=== PATIENT | male | born 1990 | race Caucasian/White ===

== ENCOUNTER 2024-07-02 06:57 | Emergency (ER) | payer MEDICAID ==
[~2024-07-02] VITALS: Ht 165.1 cm; Wt 74.1 kg
[2024-07-02] MEDS ORDERED: thiamine 100mg tablet PO ONE (08:45)
[2024-07-02 10:36] VITALS: BP 141/99; PULSE 101; RESP 16; TEMP 97.9; O2SAT 97
[2024-07-05] MEDS ORDERED: DIPH-735 PO (04:35)
== END 2024-07-02 10:39 | disposition home or self-care (01) ==
LOC: ER 06:57
DX: F10.129 Alcohol abuse with intoxication, unspecified (principal); Y90.9 Presence of alcohol in blood, level not specified
CPT/HCPCS: 99283

== ENCOUNTER 2024-07-09 12:48 | Emergency (ER) | payer MEDICAID ==
[~2024-07-09] VITALS: Ht 170.2 cm; Wt 76.0 kg
[~2024-07-09 12:48] MED LIST: DIPH-735 PO
[2024-07-09 12:54] VITALS: BP 153/86; PULSE 98; RESP 18; O2SAT 94
[2024-07-09] MEDS ORDERED: CHLO25CA10 PO (13:14)
[2024-07-09 13:27] VITALS: TEMP 99.3
== END 2024-07-09 13:29 | disposition home or self-care (01) ==
LOC: ER 12:48
DX: Z00.00 Encounter for general adult medical examination without abnormal findings (principal); F10.239 Alcohol dependence with withdrawal, unspecified; Y90.9 Presence of alcohol in blood, level not specified
CPT/HCPCS: 99283

== ENCOUNTER 2024-07-28 12:29 | Emergency (ER) | payer MEDICAID ==
[~2024-07-28] VITALS: Ht 170.2 cm; Wt 75.9 kg
[~2024-07-28 12:29] MED LIST changes: +CHLO25CA10 PO
[2024-07-28 12:35] VITALS: BP 135/87; PULSE 110; RESP 16; O2SAT 96
[2024-07-28 14:32] VITALS: TEMP 97.2
== END 2024-07-28 14:35 | disposition home or self-care (01) ==
LOC: ER 12:30
DX: F10.129 Alcohol abuse with intoxication, unspecified (principal); Z79.899 Other long term (current) drug therapy
CPT/HCPCS: 99281

== ENCOUNTER 2025-05-17 13:39 | Inpatient (IN) | payer SELFPAY ==
[~2025-05-17] VITALS: Ht 170.2 cm; Wt 89.9 kg
--- NOTE | 2025-05-17 15:08 | Physician Documentation ---
History of Present Illness ~ Chief Complaint: Ingestion Error Stated Complaint: "SEEING THINGS" Time Seen by MD: 14:05 Primary Medical Doctor: None HPI 34-year-old male reports seeing people that may or may not have been there earlier this morning. Denies any psychiatric illnesses does have a history of EtOH abuse. He states that he also took 3-4 ibuprofen and to cups of NyQuil and wants to have his stomach pumped. He adds that he took these medications early this morning.. He denies taking any other medications. Denies any HI or SI or have ever being on been placed on hold. He is hyper fixated on wanting to throw up the medications that he swallowed. Appears paranoid. Day of Ingestion: May 17, 2025 Medication Reconciliation Allergies: Coded Allergies: No Known Allergies (Unverified , 05/17/25) Scheduled Diphenhydramine Hcl (Sleep-Aid), 2 CAP PO HS Thiamine Hcl (Vitamine B-1), 1 TAB PO DAILY, (Reported) Scheduled PRN Chlordiazepoxide Hcl (Librium), 1 CAP PO BID PRN for alcohol w/d symptoms Clonidine HCl (Clonidine HCl), 1 TAB PO TID PRN for anxiety attack, (Reported) Hydroxyzine Hcl* (Atarax*), 1 TAB PO Q6H PRN for anxiety, (Reported) Past Medical History Past Medical History: No Pertinent History Past Surgical History: no surgical history Alcohol Use: None Drug Use: none Review of Systems All Other Systems at this time: Reviewed and Negative ROS As stated above in the HPI, otherwise all systems are reviewed and negative. Constitutional: Reports: no symptoms reported Physical Exam Vital Signs: Temperature: 97.6, Source: Temporal, Heart Rate: 98, Respiratory Rate: 16, BP: 171/80, Pulse Oximetry: 91, Weight: 89.900 Oxygen Flow Rate: 0 Physical Exam General: Alert, no apparent distress. HEENT: PERRL, EOMI, no injection, moist mucous membranes. Neck: Full range of motion. Respiratory: Lungs clear, no respiratory distress. Chest: No accessory muscle use. Cardiovascular: Regular rate and rhythm, no murmurs. Gastrointestinal: Soft, nontender, nondistended. Bowels sounds present. Extremities: Normal range of motion, no deformity. Neurologic: Oriented x4. Anxious appearing Psychiatric: Normal mood and affect. Skin: Normal color, warm and dry. No edema, no ecchymosis. Progress Progress Note Received critical results on patient's chemistry panel, starting for hyponatremia hypokalemia and likely hypomagnesemia Patient staff advised me that the patient likely has eloped from his room they are evaluating via security to obtain a location of the patient Consulted with [facility] and they do not have this patient in their roster her from previous interactions or Cases Patient's father brought the patient back to the ED for evaluation. We are starting resuscitation efforts at this time. Patient's current status does not differentiate from when he departed from the ED Results/Orders Results/Orders Orders - MANDA BALLESTEROS HOTEL OFFICE MANAGER K (05/18/25 03:00) K (05/19/25 03:00) K (05/20/25 03:00) K (05/21/25 03:00) K (05/22/25 03:00) K (05/23/25 03:00) K (05/24/25 03:00) Potassium Cl Sr Tablet (K-Dur Tablet) (05/17/25 17:10) Potassium Cl Sr Tablet (K-Dur Tablet) (05/17/25 17:10) MG (05/18/25 03:00) MG (05/19/25 03:00) MG (05/20/25 03:00) MG (05/21/25 03:00) MG (05/22/25 03:00) Potassium Cl 40meq/1/2ns 520ml ([place] (05/17/25 17:10) Creatinine Clearance, Urine (05/17/25 17:10) * Straight Cath* (05/17/25 17:27) Page Hospitalist (05/17/25 19:01) Fill Out Med Reconciliation (05/17/25 19:01) Completed Orders - MANDA BALLESTEROS HOTEL OFFICE MANAGER Cbc/Diff (05/17/25 15:05) BMP (05/17/25 15:05) Lipase (05/17/25 15:05) CMP (05/17/25 15:05) Normal Saline 1000ml (0.9% Sodium Chlori (05/17/25 15:05) Diazepam Inj (Valium Inj) (05/17/25 15:05) Drug Screen, Urine (05/17/25 15:48) Acetaminophen (05/17/25 15:12) Ethanol (05/17/25 15:12) Salicylate (05/17/25 15:12) Electrocardiogram (05/17/25 ) MG (05/17/25 15:12) Magnesium Sulf-Water 2g/50ml (Magnesium (05/17/25 17:05) Normal Saline 1000ml (0.9% Sodium Chlori (05/17/25 17:25) Ua Sodium Random (05/17/25 17:24) Osmoality Ua (05/17/25 17:24) Osmolality (05/17/25 17:24) Ua Urea Random (05/17/25 17:24) Ua Creatinine Random (05/17/25:) Ua W/Microscopic, Cult If Ind (05/17/25 17:45) Medications Received in ER Medications (Trade) Dose Ordered Sig/Cayla Route PRN Reason Start Time Stop Time Status Last Admin Dose Admin (0.9% sodium chloride (NS) 1000ml IV soln) 1,000 ml ONCE ONCE IVB 05/17/25 15:05 05/17/25 15:06 DC 05/17/25 18:22 1,000 ML (Valium inj) 10 mg ONCE ONCE IV 05/17/25 15:05 05/17/25 15:06 DC 05/17/25 18:35 10 MG Magnesium Sulfate 50 ml @ 25 mls/hr ONCE ONCE IV 05/17/25 17:05 05/17/25 19:04 DC 05/17/25 18:19 25 MLS/HR (K-DUR tablet) 40 meq Q4H PRN PO Potassium 3.0 or less 05/17/25 17:10 05/17/25 18:36 40 MEQ Potassium Chloride 520 ml @ 130 mls/hr PRN PRN IV Potassium 3.1-3.4 05/17/25 17:10 05/17/25 18:25 130 MLS/HR (0.9% sodium chloride (NS) 1000ml IV soln) 1,000 ml ONCE ONCE IVB 05/17/25 17:25 05/17/25 17:26 DC 05/17/25 19:09 1,000 ML Vital Signs 05/17/25 05/17/25 05/17/25 05/17/25 14:07 15:06 17:55 17:56 Temp 97.6 Pulse 98 101 88 Resp 16 24 18 18 B/P (MAP) 171/80 156/92 (113) 150/86 (107) Pulse Ox 91 93 92 O2 Flow Rate 0 0 05/17/25 05/17/25 18:35 19:04 Pulse 84 Resp 18 18 B/P (MAP) 136/80 (98) Pulse Ox 99 O2 Flow Rate 0 Laboratory Tests Test 05/17/25 15:12 05/17/25 17:45 White Blood Count 12.9 H Red Blood Count 5.47 Hemoglobin 16.1 Hematocrit 45.4 Mean Corpuscular Volume 83.1 Mean Corpuscular Hemoglobin 29.5 Mean Corpuscular Hemoglobin Concent 35.5 Red Cell Distribution Width 13.4 Platelet Count 285 Mean Platelet Volume 7.8 Neutrophils (%) (Auto) 75.1 H Lymphocytes (%) (Auto) 13.4 L Monocytes (%) (Auto) 11.0 Eosinophils (%) (Auto) 0.2 Basophils (%) (Auto) 0.3 Neutrophils # (Auto) 9.7 H Lymphocytes # (Auto) 1.7 Monocytes # (Auto) 1.4 H Eosinophils # (Auto) 0.0 Basophils # (Auto) 0.0 CBC Comment Sodium Level 121 L Potassium Level 2.1 *L Chloride Level 68 L Carbon Dioxide Level 38.2 H Anion Gap 15 Blood Urea Nitrogen 43 H Creatinine 1.92 H Estimated GFR/1.73 m2 40 BUN/Creatinine Ratio 22.4 H Glucose Level 136 H Osmolality 266 L Calcium Level 7.8 L Magnesium Level 1.9 Total Bilirubin 1.5 H Aspartate Amino Transf (AST/SGOT) 86 H Alanine Aminotransferase (ALT/SGPT) 79 H Alkaline Phosphatase 83 Total Protein 8.2 Albumin 4.3 Globulin 3.9 Albumin/Globulin Ratio 1.1 Lipase 29 Chemistry Comments Salicylates Level 0.3 L Acetaminophen Level < 2.0 L Ethyl Alcohol Level < 10 Urine Specimen Description Urinal Urine Color Yellow Urine Clarity Clear Urine pH 6.5 Urine Specific [place] 1.015 Urine Protein Trace Urine Glucose (UA) Negative Urine Ketones Trace H Urine Occult Blood Small Urine Nitrite Negative Urine Bilirubin Negative Urine Urobilinogen 0.2 Urine Leukocyte Esterase Negative Urine RBC 3-10 Urine WBC 0-4 Urine Squamous Epithelial Cells Few Urine Transitional Epithelial Cells Few Urine Uric Acid Crystals Few Urine Bacteria None seen Urine Hyaline Casts 0-3 Urine Culture Indicated Not ind Volume Urine Centrifuged 10 ml Urine Osmolality 399 Urine Random Creatinine 106.0 Urine Random Sodium 22 Urine Random Urea 699.0 Urine Comment Urine Opiates Screen Negative Urine Methadone Screen Negative Urine Fentanyl Screen Negative Urine Barbiturates Screen Negative Urine Phencyclidine Screen Negative Urine Amphetamines Screen Negative Urine Benzodiazepines Screen Negative Urine Cocaine Screen Negative Urine Cannabinoids Screen Negative Drug Screen Comment EKG/XRAY/CT/US/VASC/MRI EKG : Additional Comment Date: May 17, 2025 Time: 17:07 EKG was obtained by the [facility] record and interpreted by myself Jaun Sarmiento DO, showing sinus rhythm of 97, normal [place] interval, borderline QRS of 118, prolonged QT of 554, normal axis, no STEMI, fairly high T-waves concerning for atrial enlargement. No STEMI. Medical Decision Making Additional information obtaine: old records Findings Patient is grossly abnormal lab values including hypokalemia hyponatremia and elevated creatinine with decreased kidney function. He appears as though he is esentially diluted himself based on his lab values. This time we will going to started resuscitating him and his electrolytes along with the admitting for further evaluation by the hospitalist Differential Dx:Considerations: Include: Alcohol abuse, Anxiety, Bipolar disorder, Conversion disorder, Delirium, Depression, Drug Overdose-Accidental, Drug Overdose-Intentional, Encephalopathy, Hallucinations, Homicidal, Liver failure, Panic disorder, Personality disorder, Renal failure, Respiratory failure, Schizophrenia, Substance abuse, Suicidal attempt, Suidical gesture, Other Departure Disposition: ADMITTED INPATIENT Impression: Primary Impression: Alcoholic intoxication Additional Impressions: Hyponatremia Hypokalemia Referrals: NO PRIMARY CARE PROVIDER (PCP) Critical Care Note Total Time (mins): 30 Critical Care Note The very real possibility of a deterioration of this patient's condition required the highest level of my preparedness for sudden, emergent intervention. I provided critical care services, which included medication orders, frequent reevaluations of the patient's condition and response to treatment, ordering and reviewing test results, and discussing the case with various consultants. Excludes time spent performing separately billable procedures. The critical care time associated with the care of the patient was. Signature Scribe Signature: g Attestation: Scribed for Manda Ballesteros Technology Strategist by Manda Ferro NP . 05/17/25 22:45 MANDA BALLESTEROS NP May 17, 2025 15:08 JUAN SARMIENTO DO May 17, 2025 17:09
[2025-05-17 15:27] LABS: MEAN PLATELET VOLUME 7.8 FL (7.4-10.4); RED CELL DISTRIBUTION WIDTH 13.4 % (11.5-14.5)
[2025-05-17 15:42] LABS: CREATININE 1.92 MG/DL (0.60-1.10); TOTAL CARBON DIOXIDE 38.2 MMOL/L (24-32); eCRCL 51 ML/MIN; eGFR 40 ML/MIN
[2025-05-17 16:09] LABS: ETHANOL < 10 MG/DL (<10)
--- NOTE | 2025-05-17 17:05 | ELECTROCARDIOGRAPH REPORT ---
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 TAMMY Corral Measurements Intervals [place] Rate: 97 P: 79 HI: 126 QRS: 80 QRSD: 118 T: 50 QT: 436 QTc: 554 Interpretive Statements Sinus rhythm Right atrial enlargement Nonspecific intraventricular conduction delay Probable inferior infarct, old Borderline ST elevation, anterior leads Baseline wander in lead(s) V1 Electronically Signed On 05-18-2025 12:59:[address] TAMMY Corral Please click the below link to view image of tracing.
[2025-05-17] MEDS ORDERED: potassium Cl 20 mEq SR tablet PO PRN ×3 (17:10→20:50)
[2025-05-17 18:05] LABS: LEUKOCYTE ESTERASE ,URINE NEGATIVE (Neg); NITRITES, URINE NEGATIVE (Neg); OCCULT BLOOD,URINE SMALL (Neg)
[2025-05-17 18:11] LABS: UA COLLECTION TYPE URINAL
[2025-05-17 18:12] LABS: SQUAMOUS EPITHELIAL CELL,UR FEW /LPF (FEW); URIC ACID CRYSTALS FEW /HPF (NEGATIVE)
[2025-05-17 18:13] LABS: HYALINE CASTS 0-3 /LPF (NEGATIVE)
[2025-05-17 18:18] LABS: CREATININE,URINE RANDOM 106.0 MG/DL; UA UREA RANDOM 699.0 MG/DL
[2025-05-17] MEDS: magnesium sulf-water 2g/50mL 50 ML IV ONE (18:19)
[2025-05-17] MEDS: normal saline 1000ML IV soln IVB ONE ×2 (18:22→19:09)
[2025-05-17] MEDS: potassium Cl 40MEQ/1/2NS 520ml 520 ML IV PRN (18:25)
[2025-05-17 18:26] LABS: URINE AMPHETAMINE SCREEN NEGATIVE (Neg); URINE BARBITUATE SCREEN NEGATIVE (Neg); URINE BENZODIAZEPINES SCREEN NEGATIVE (Neg); URINE CANNABINOID SCREEN NEGATIVE (Neg); URINE COCAINE SCREEN NEGATIVE (Neg); URINE METHADONE SCREEN NEGATIVE (Neg); URINE OPIATE SCREEN NEGATIVE (Neg); URINE PHENCYCLIDINE SCREEN NEGATIVE (Neg)
[2025-05-17] MEDS: diazepam inj 5 MG/ML inj. IV ONE (18:35)
[2025-05-17] MEDS: potassium Cl 20 mEq SR tablet PO PRN (18:36)
[2025-05-17 18:47] LABS: OSMOLALITY UA 399.0 MOSM/K (50-1400)
[2025-05-17] MEDS ORDERED: potassium Cl 40MEQ/1/2NS 520ml 520 ML IV PRN (20:50)
[2025-05-17] MEDS ORDERED: ondansetron/PF 4mg/2ml inj IV PRN (20:50)
[2025-05-17] MEDS ORDERED: magnesium sulf-water 2g/50mL 50 ML IV PRN (20:50)
[2025-05-17] MEDS ORDERED: magnesium sulf-water 4G/100mL 100 ML IV PRN (20:50)
[2025-05-17] MEDS ORDERED: mag hydrox/Alum hydrox/simeth 30ml oral suspension PO PRN (20:50)
[2025-05-17] MEDS ORDERED: magnesium Cl slow-release 64mg tablet PO PRN (20:50)
[2025-05-17] MEDS ORDERED: albuterol 2.5 MG/3 ML nebule NEB PRN (21:00)
[2025-05-17] MEDS: ipratropium/albuterol 3ml nebule NEB SCH (22:00)
[2025-05-17] MEDS ORDERED: CLON0.1T2 PO (22:07)
[2025-05-17] MEDS ORDERED: THIA100T66 PO (22:07)
[2025-05-17] MEDS ORDERED: HYDR-3686 PO (22:07)
[2025-05-17] MEDS: normal saline 1000ml 1,000 ML IV SCH (22:08)
[2025-05-17] MEDS: guaiFENesin ER 600mg tablet PO SCH (22:08)
[2025-05-17] MEDS: nicotine 14mg patch - 24hr TD SCH (22:08)
[2025-05-17] MEDS: CefTRIAXone/D5W-Rocephin 1gm 50 ML IV SCH (22:09)
[2025-05-17 22:11] LABS: CREATININE 1.77 MG/DL (0.60-1.10); eCRCL 55 ML/MIN; eGFR 44 ML/MIN
--- NOTE | 2025-05-17 22:12 | RADIOLOGY REPORT ---
EXAM: CT CT HEAD INDICATION: aloc TECHNIQUE: CT of the head without intravenous contrast. Radiation Dose : 1. Head: CT Dose: CTDI volume is 58.45 mGy. Dose-length product is 1044.30 mGy*cm The dose indicators for CT are the volume Computed Tomography (CT) Dose Index (CTDIvol) and the Dose Length Product (DLP), and are measured in units of mGy and mGy-cm, respectively. These indicators are not patient dose, but values generated from the CT scanner acquisition factors. The report includes radiation exposure data for exposures received during this examination. COMPARISON: None FINDINGS: There is no evidence of acute intracranial hemorrhage, extra-axial collection, mass effect, midline shift, herniation or hydrocephalus. The ventricles, sulci and cisterns are age appropriate. The villegas-white differentiation is intact. The visualized paranasal sinuses and mastoid air cells are clear. The surrounding soft tissues and osseous structures are unremarkable. IMPRESSION: 1. No evidence of acute intracranial hemorrhage, mass effect or hydrocephalus. Radiation optimization: All CT scans at this facility use at least one of these dose optimization techniques: automated exposure control mA and/or kV adjustment per patient size (includes targeted exams where dose is matched to clinical indication) or iterative reconstruction.
[2025-05-17 22:14] LABS: TOTAL CARBON DIOXIDE 41.4 MMOL/L (24-32)
[2025-05-17 22:45] LABS: PHOSPHORUS 3.0 MG/DL (2.3-4.5)
--- NOTE | 2025-05-17 22:51 | RADIOLOGY REPORT ---
CHEST RADIOGRAPH Indication: CONGESTION Technique: Single frontal view of the chest was obtained. Comparison: None Findings: Mild pulmonary vascular congestion. No significant pleural effusion. No pneumothorax. Nonenlarged cardiomediastinal silhouette. IMPRESSION: Mild pulmonary vascular congestion.
[2025-05-17 23:02] VITALS: BP 162/77; PULSE 98; RESP 18; TEMP 98.1; O2SAT 91
--- NOTE | 2025-05-17 23:03 | HISTORY AND PHYSICAL-Residence ---
History & Physical Providers to CC Resident Creating Document: ROSENDA BOLANOS RES ~ History of Present Illness Primary Medical Doctor: None Reason for Admit\\Complaint: ELECTROLYTE ABNORMALITIES,HALLUCINATIONS, AMARILIS History of Present Illness 34-year-old male who is not a very good historian presented to the ED for chief complaints of hallucinations, both auditory and visual. He states that these hallucinations has been going on for a week. He was using melatonin in the past to help him sleep, but started using Advil PM HS and NyQuil HS since the last one week. He is only able to sleep for 4 hours. He says that he was also using "hydroxamine and ketadine" for insomnia. Denies aggravating or relieving factors, or associated symptoms like significant chest pains, diaphoresis, fevers/chills, nasal congestion, expectoration, palpitations, or weight loss/weight gain. Denies symptoms of UTI like urgency, frequency, lower belly pain or burning micturition. Does not have any issues with bowel or bladder. States that he quit drinking alcohol 11 months ago, used to drink a bottle of vodka every day. Smokes around 10 cigarettes a day. Denies recreational drug use. Does not have any suicidal ideations or thoughts of harming others. [facility]. Not sure if he has a psychiatrist or if it was a regular PCP. Does not take any home medications other than the ones mentioned above. No known drug allergies. Allergies: Coded Allergies: No Known Allergies (Unverified , 05/17/25) Home Medications Home Medications Active Librium (Chlordiazepoxide Hcl) 25 Mg Capsule 1 Cap PO BID PRN 3 Days Sleep-Aid (Diphenhydramine Hcl) 25 Mg Capsule 2 Cap PO HS Reported Vitamine B-1 (Thiamine Hcl) 100 Mg Tablet 1 Tab PO DAILY Atarax* (Hydroxyzine HCl) 25 Mg Tablet 1 Tab PO Q6H PRN Clonidine HCl 0.1 Mg Tablet 1 Tab PO TID PRN Past Medical History Past Medical History None Past Surgical History Surgical History Comment Hernia surgery Past Social History Smoking: Cigarettes Alcohol Use: None Drug Use: None ROS All Other Systems: Reviewed and Negative ROS Reviewed in full. All negative except for pertinent positive HPI. Constitutional: Reports: no symptoms reported Exam Vitals: Vital Signs Date Time Temp Pulse Resp B/P (MAP) Pulse Ox O2 Delivery O2 Flow Rate FiO2 05/17/25 22:21 98.1 88 18 144/75 (98) 97 0 General: General: Awake and Alert, no acute distress. HEENT: Conjunctiva pink, Sclera clear, Mucus Membranes moist. Neck: Supple without masses and tenderness. Resp: Unlabored. Bilateral wheeze. Heart: Regular rhythm, normal S1 and S2, no rub, murmur or gallop. Abdomen: Soft and non tender no organomegaly. Normal bowel sounds x4 quadrant normoactive. No guarding or rigidity. Extremities: Normal ROM, no swelling, nontender. No cyanosis,clubbing or edema. 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 Skin: Warm and Dry. Psychiatry: Visual and auditory hallucinations Diagnostic Data Last Recorded Lab Results: 05/17/25 1512 05/17/252136 Advance Care Planning Advanced Care plannin - 30 Minutes (I spent total of 15-30 minutes reviewing various resuscitative measures with the patient. Patient decided to be full code.) Additional Plan 34-year-old male who is not a very good historian presented to the ED for chief complaints of hallucinations, both auditory and visual. He states that these hallucinations has been going on for a week. Severe electrolyte abnormalities, under evaluation Hyponatremia, hypokalemia, hypocalcemia Possible drug-induced SIADH (secondary to NSAIDs, NyQuil) vs adrenal insufficiency Prolonged QTC, Visual and auditory hallucinations EKG: Normal sinus rhythm heart rate 97. QTC 554. Electrolyte replacement and continuous telemetry monitoring Continue NS at 100 mL/hour Repeat BMP, sodium up to 125, potassium 2.6 Unsure if he had consumed NSAIDs Advil and NyQuil along with some other drugs, he does deny street drug use. Also ordered urine MDMA and LSD as they could be causing the above symptoms, follow up with results Thyroid profile is normal, There was a possibility of underlying adrenal insufficiency, follow up with a.m. cortisol, and ACTH Avoid NSAIDs and all QT prolongation medications Metabolic alkalosis I was told that he was trying to induce vomiting, he has not had any episodes of emesis while in the ED Carbon dioxide is 41 Metabolic alkalosis could be secondary to contraction alkalosis from the above Follow up with ABG AMARILIS likely secondary to renal tubular stasis BUN 43, creatinine 1.92 Acute kidney injury could be from prerenal AMARILIS Continue IV fluid resuscitation Urine spot studies consistent with prerenal AMARILIS Follow up with renal ultrasound COPD, not in exacerbation Active smoker Bilateral wheeze present, he is also complaining of greenish sputum Does have mild elevation in WBCs Follow up with sputum cultures and blood cultures Continue IV ceftriaxone 1 g daily Breathing treatments p.r.n. Alcohol use disorder Hepatic dysfunction - Elevated LFTs Elevated bilirubin 1.5, AST ALT 86, 79 States he quit drinking 11 months ago, U tox ethyl alcohol less than 10 Mild withdrawal protocol on board, Follow up with ultrasound abdomen Substance use and nursing home social worker consulted. On 1798, we will need to be evaluated by mental health once medically cleared. Awaiting med rec Code Status: Full code DVT prophylaxis: Heparin Analgesia/sedation: None Line/tube: PIV GI prophylaxis: None Nutrition: Regular diet Prognosis: Guarded Disposition: Continue medical management. Rosenda Bolanos MD. IM Resident PGY-3 I saw and discussed the patient with the resident team agree with assessment and plan we will follow I asked to call Nephrology on the case Date of Service: May 17, 2025 Billing Provider: KOLTON HARPER MD, ELIZABETH, RES May 17, 2025 23:03 KOLTON HARPER MD May 18, 2025 06:31
[2025-05-17 23:30] VITALS: RESP 18; O2SAT 91
[2025-05-18] VITALS (13 sets, daily range): BP systolic 115–155; BP diastolic 70–91; PULSE 85–105; RESP 16–22; TEMP 98.1–99; O2SAT 91–96
[2025-05-18 01:50] LABS: LEUKOCYTE ESTERASE ,URINE NEGATIVE (Neg); NITRITES, URINE NEGATIVE (Neg); OCCULT BLOOD,URINE TRACE-INTACT (Neg); UA COLLECTION TYPE NON-SPECIFIED
[2025-05-18 01:58] LABS: SQUAMOUS EPITHELIAL CELL,UR FEW /LPF (FEW)
[2025-05-18] MEDS ORDERED: calcium gluconate inj. 2 GM in normal saline 100ml IV soln 100 ML IV ONE (04:30)
[2025-05-18] MEDS ORDERED: PERFLUTREN PROTEIN-A MICROSPHR (Optison) 0.22 MG/ML 3ML VIAL IV ONE (04:30)
[2025-05-18] MEDS: CALCIUM GLUC 1gm/50ml NACL,iso 100 ML IV ONE (05:16)
[2025-05-18] MEDS: K and/or MAG REPLACEMENT MC SCH (08:00)
[2025-05-18] MEDS: nicotine 14mg patch - 24hr TD SCH (08:00)
[2025-05-18 08:10] LABS: MEAN PLATELET VOLUME 8.0 FL (7.4-10.4); RED CELL DISTRIBUTION WIDTH 13.3 % (11.5-14.5)
[2025-05-18 08:11] LABS: INR 1.0 INR
[2025-05-18 08:42] LABS: CHOL/HDL RATIO 3.4 (0.00-4.99); CREATININE 1.34 MG/DL (0.60-1.10); LDL CHOLESTEROL 78 MG/DL (50-100); PHOSPHORUS 1.9 MG/DL (2.3-4.5); TOTAL CARBON DIOXIDE 37.8 MMOL/L (24-32); eCRCL 73 ML/MIN; eGFR 61 ML/MIN
[2025-05-18] MEDS: multivitamins, therapeutics tablet PO SCH (08:52)
[2025-05-18] MEDS: heparin, porcine 5000 units/ml vial SQ SCH (08:53)
--- NOTE | 2025-05-18 09:25 | RADIOLOGY REPORT ---
INDICATION: elevated lfts TECHNIQUE: Multiple real-time sonographic images of the abdomen were obtained. COMPARISON: None FINDINGS: The liver is homogenous in echogenicity. The liver measures 18cm. No intrahepatic biliary ductal dilatation is noted. The gallbladder wall measures 0.3 cm and is unremarkable. No gallstones or sludge is seen. The common duct measures 0.3 cm and is unremarkable. No pericholecystic fluid is noted. The right kidney measures 11cm. No hydronephrosis. The left kidney measures 12cm. No hydronephrosis. The spleen measures 9cm, within normal limits. The echogenicity is within normal limits. The pancreas is not well visualized due to obscuration from bowel gas. The visualized portions of the IVC and aorta are grossly unremarkable. IMPRESSION: Normal exam of the abdomen.
--- NOTE | 2025-05-18 18:00 | CARDIOLOGY REPORT ---
APPROVED REPORT EXAM: Comprehensive 2D, Doppler, and color-flow Echocardiogram. Patient Location: [facility] Blood Pressure: 139/70 mmHg Heart Rate: 100 bpm Indications Shortness of Breath NO FRAMING MECHANIC NO Previous ECHO 2D Dimensions LA Diam 2.6 cm IVSd 0.8 (0.7-1.1cm) LVDd 5.6 cm PWd 0.9 (0.7-1.1cm) IVSs 1.5 (0.8-1.2cm) LVDs 3.7 (2.5-4.0cm) PWs 1.3 (0.8-1.2cm) LVOT Diameter 2.22 (1.8-2.4cm) LVEF(%) 61.3 (>50%) Ao Asc Diam. 3.44 cm IVC 13.09 mm FS (%) 33.3 % SV 93.9 ml CO 9.3 L/min M-Mode Dimensions Left Atrium(MM) 3.10 (2.5-4.0cm) Aortic Root 2.41 (2.2-3.7cm) Aortic Cusp Exc 1.89 (1.5-2.0cm) MV EPSS 0.5 (<0.5cm) Aortic Valve AoV Peak Natanael. 207.0 cm/s AoV VTI 31.8 cm AO Peak GR. 17.1 mmHg AO Mean GR. 9 mmHg LVOT VTI 21.71 cm LVOT Peak Natanael. 125.2 cm/s LAINA(VTI)/BSA 2.64 cm2/m2 LAINA (VTI) 2.64 cm2 AI P 1/2 Time 496 ms AV DI 0.68 % Mitral Valve MV E Velocity 82.8 cm/s MV Peak Gr. 3 mmHg MV DECEL TIME 208 ms MV A Velocity 72.7 cm/s MV PHT 64 ms E/A Ratio 1.1 MVA (PHT) 3.44 cm2 MV VMax 81.1 cm/s TDI Lateral E' P. V 18.46 cm/s E/Lateral E' 4.5 Tricuspid Valve TR P. Velocity 168 cm/s RAP ESTIMATE 10 mmHg TR Peak Gr. 11 mmHg RVSP 21 mmHg LEFT VENTRICLE Normal LV size and wall thickness. Overall systolic function is normal. LVEF is 60-65%. RIGHT VENTRICLE RV is normal size and function. ATRIA The left atrium size is normal. AORTIC VALVE Trileaflet AV with moderate calcification on the right and left commissure Trace insufficiency. MITRAL VALVE Mitral valve leaflets are mildly thickened with mild annular calcification. Trace regurgitation. TRICUSPID VALVE The tricuspid valve is normal in structure with trace regurgitation. PULMONIC VALVE The pulmonary valve is normal in structure with physiologic insufficiency. GREAT VESSELS The aortic root is normal in size. The ascending aorta is normal in size. The IVC is normal in size and collapses >50% with inspiration. PERICARDIUM Normal pericardium. No effusion. Other Information Study Quality: Adequate Conclusion Normal LV size and wall thickness. Overall systolic function is normal. LVEF is 60-65%. RV is normal size and function. The left atrium size is normal. Trileaflet AV with moderate calcification on the right and left commissure Trace insufficiency. Mitral valve leaflets are mildly thickened with mild annular calcification. Trace regurgitation. The tricuspid valve is normal in structure with trace regurgitation. The pulmonary valve is normal in structure with physiologic insufficiency. Normal pericardium. No effusion.
--- NOTE | 2025-05-18 19:19 | PROGRESS NOTE ---
Daily Progress Note Providers to CC ~ Antibiotic Timeout Antibiotic Ordered?: Yes Subjective Patient was seen in presence of sitter he was sitting on the chair walking around. Not very good historian but cooperated well during physical exam Objective Vital Signs Date Time Temp Pulse Resp B/P (MAP) Pulse Ox O2 Delivery O2 Flow Rate FiO2 05/18/25 18:30 101 05/18/25 18:28 98.1 16 144/87 (106) 93 Room Air 05/18/25 16:04 0.0 05/18/25 15:59 21 Result Diagram: 05/18/25 0717 05/18/25 0717 General-patient not in any acute distress, alert awake , age-appropriate, looks comfortable HEENT-atraumatic normocephalic, neck supple without elevated JVD, No lymphadenopathy bilaterally. Eyes-no icterus or pallor seen in eyes Chest-clear to auscultation bilaterally, breathing nonlabored no tachypnea, no wheezing, no crepitation, no crackles. Heart-S1-S2 normal, regular heart rate no murmur Abdomen bowel sounds positive on auscultation, soft nondistended nontender no guarding, no rigidity Skin no active skin rash Neurology-grossly intact, nonfocal alert awake cooperated during physical examination Extremity- no pedal edema able to move all 4 extremities Coagulation Studies Laboratory Tests Test 05/18/25 07:17 Prothrombin Time 10.3 SECONDS (9.0-12.0) INR International Normalized Ratio 1.0 INR Coagulation Comments Problem\Assessment\Plan 34-year-old male who is not a very good historian presented to the ED for chief complaints of hallucinations, both auditory and visual. He states that these hallucinations has been going on for a week. Severe electrolyte abnormalities, under evaluation Hyponatremia, hypokalemia, hypocalcemia Possible drug-induced SIADH (secondary to NSAIDs, NyQuil) vs adrenal insufficiency Prolonged QTC, Visual and auditory hallucinations EKG: Normal sinus rhythm heart rate 97. QTC 554. Electrolyte replacement and continuous telemetry monitoring Continue with NS at 100 mL/hour will follow BMP, sodium up to 125, potassium 2.6. Urine drug screen negative Metabolic alkalosis Metabolic alkalosis could be secondary to contraction alkalosis from the above will Follow up with ABG AMARILIS likely secondary to renal tubular stasis BUN 43, creatinine 1.92 Acute kidney injury could be from prerenal AMARILIS Continue IV fluid resuscitation Urine spot studies consistent with prerenal AMARILIS Abdominal ultrasound unremarkable COPD, not in exacerbation Active smoker WBC back to normal will Follow up with sputum cultures and blood cultures Continue IV ceftriaxone 1 g daily Breathing treatments p.r.n. Alcohol use disorder Hepatic dysfunction - Elevated LFTs Elevated bilirubin 1.5, AST ALT 86, 79 States he quit drinking 11 months ago, U tox ethyl alcohol less than 10 Substance use and social media marketing analyst consulted. On 1798, we will need to be evaluated by mental health once medically cleared. We will get psychiatry evaluation for patient Date of Service: May 18, 2025 Billing Provider: SERGIO QUINTERO MD Common Visit Codes: [id number] INP/OBS CARE(HIGH) SERGIO QUINTERO MD May 18, 2025 19:19
[2025-05-18] MEDS ORDERED: ipratropium/albuterol 3ml nebule NEB PRN (20:00)
[2025-05-19] VITALS (8 sets, daily range): BP systolic 146–148; BP diastolic 79–89; PULSE 78–100; RESP 16–19; TEMP 97.7–98.8; O2SAT 94–99
[2025-05-19] MEDS: haloperidol lactate 5mg/ml inj IM ONE (00:16)
[2025-05-19 07:31] LABS: MEAN PLATELET VOLUME 8.1 FL (7.4-10.4); RED CELL DISTRIBUTION WIDTH 14.0 % (11.5-14.5)
[2025-05-19 08:00] LABS: CREATININE 1.09 MG/DL (0.60-1.10); PHOSPHORUS 2.4 MG/DL (2.3-4.5); TOTAL CARBON DIOXIDE 31.6 MMOL/L (24-32); eCRCL 89 ML/MIN; eGFR 77 ML/MIN
[2025-05-19] MEDS: nicotine 14mg patch - 24hr TD SCH (08:12)
[2025-05-19] MEDS ORDERED: loperamide 2mg capsule PO PRN (10:10)
--- NOTE | 2025-05-19 12:33 | PROGRESS NOTE ---
Progress Note Dictate Providers to CC ~ Progress Note: HPI: Admitted for electrolyte imbalance, overdosed on NyQuil and ibuprofen- presented to the ED requesting his stomach be pumped. [facility] endorsed on admission to ED- states they had been present for one week. Utox negative. Denied ilicit drug use. Attempted to elope from the emergency department. On a sitter due to elopement risk and danger to self. Consulted to r/o underlying agitation, has pulled out his IV twice, ativan has worsened hallucinations, haloperidol was more effective for agitation and sleep, Hallucinations intermittent- there will be times when he starts talking to staff and he shared that he thought he was in the middle of the street, was actilvity observing unseen things out of the window, then there will be other tiems where he appears to be a "normal xiomy" significant agitation HS 05/18- was administered haloperidol, has been more cooperative today. Security was called twice on 05/18 due to agitation. Concern that agitation has been escalating at night. Per father it was started by getting strep throat, poor fluid intake, emesis, then Nyquil PM. Reports he was hallucinating for one day and he knew something was wrong and so they went to the ED. States he was having trouble sleeping so he took a high dose of sleeping medication, denies it was an intentional overdose. States a similar incident happened 9-10 months ago in the context of abusing alcohol he developed hallucinations, was in the process of withdrawing. Previously admitted to [facility] ED on 07/05/24 for insomnia- in the context of alcohol withdrawal. Psychiatric History: Outpatient: Psychiatrist at [facility] Inpatient: denies Historical Diagnoses (w/year): Access to firearms: Hx of suicide attempts: denies Hx of self-harm: denies Hx of violence: denies Legal hx: denies Historical Psych Medications Substances use history: cigarettes- is being provided nicotine patches. Quit ETOH 11 months ago, hx of bottle of vodka QD. Social history: Born and raised in [place], supportive family and friends, single, graduated high school. Today on Assessment: Calm, alert, oriented, socializing with family Psychiatric Medications: None Review of Psychiatric Symptoms: Mood: "good" "better" denies depression Suicide/self-harm: denies Sleep: patient estimates 6+ hours last night Appetite: fair Energy: tired Anxiety: denies Irritability: denies Homicidal/Anger: denies Hallucinations/Paranoia: denies, none noted by nursing staff today Trauma symptoms: denies Symptoms related to substance withdrawal: denies Mental Status Evaluation General Appearance: Casually dressed, Sitting up on the edge of the bed Eye contact: consistent with social norms Demeanor: cooperative Orientation: to person, place, time, situation Speech: Appropriate rate/rhythm/volume Psychomotor Activity: within normal range Abnormal Body Movements: none observed Mood: euthymic Affect: Full range Suicidality: denies suicidal ideation Homicidally: denies Thought content: consistent with social norms Thought process: logical, linear Thought perceptions: no perceptual disorder noted Memory: appears intact Attention: appear attentive Insight: fair Judgment: good Current Medical Problems: AMARILIS Metabolic Alkalosis Severe electrolyte abnormalities- hyponatremia, hypokalemia, hypocalcemia (EKG wnl) COPD Alcohol use disorder- hepatic dysfunction (elevated LFTs) Medical History TBI Hx: denies Seizure Hx: denies RANDI Hx: denies Diagnoses Acute anticholinergic toxicity Delirium secondary to anticholinergic toxicity (NyQuil, hydroxyzine, benadryl) Alcohol use disorder-- chronic hepatic dysfunction - Assessment Based on initial evaluation, including interview and history obtained today, patient appears to meet criteria for Acute anticholinergic toxicity, Delirium secondary to anticholinergic toxicity, alcohol use disorder. He reports sobriety from alcohol for the past 11 months and reports he is consistently attending appointments at [facility] for follow up treatment to sustain remission from alcohol. Per ED records he has had episodes of alcohol intoxication and acute withdrawal symptoms in June 2024. He denies that he was experiencing alcohol withdrawal in the week prior to hospitalization. Father affirms that he provided the patient Nyquil and other flu medication because the patient was ill (poor po intake, emesis, trouble with sleep) and that over use of these over the counter medications led to a physiologic state and change in mental status including hallucinations and changes in attention. Both the patient and family deny he has been experiencing additional psychiatric symptoms, deny psychiatric history. Both patient and family deny history of suicidality, report the overuse of medication as accentual. Reported history and psychiatric presentation throughout his current hospital course is consistent with a delirium due to acute anticholinergic toxicity. He responded poorly to lorazepam which would be congruent with delirium and response positively to haloperidol. No indication he is experiencing alcohol withdrawal. He reports insomnia since sobering from alcohol, he is not interested in psychiatric medication to address today. Provided education about the risks associated with the use of Nyquil and over the counter sleep medication. Encouraged him to follow up with his provider at [facility] to further address his insomnia with medication that have a lower anticholinergic burden as well as for treatment of alcohol use disorder. - Safety risk: low risk of imminent self-harm, low risk of externalized violent behaviors Recommendation: Start haloperidol 5 mg po prn Q2 hours as needed for psychotic symptoms or agitation. Would not recommend use of benzodiazepines as this class of medications could worsen delirium agitation Spent approximately 60 minutes reviewing records and test results, assessing and treatment planning, completing care coordination and documenting the encounter. Discussed risks, including possible adverse effects, and benefits of treatment recommendations including no treatment. Voice recognition software may have been used to dictate this note. There may be errors due to use of such software. Reporting of serious errors is appreciated. Antibiotic Ordered?: No Objective Vitals Vital Signs Date Time Temp Pulse Resp B/P (MAP) Pulse Ox O2 Delivery O2 Flow Rate FiO2 05/19/25 10:00 98.2 100 16 148/86 (106) 99 Room Air 05/19/25 08:00 0.0 21 Lab Results: 05/19/25 0643 05/19/25 0643 Coagulation Studies Laboratory Tests Test 05/18/25 07:17 Prothrombin Time 10.3 SECONDS (9.0-12.0) INR International Normalized Ratio 1.0 INR Coagulation Comments CODING VISIT-PSYCHIATRY Date of Service: May 19, 2025 Billing Provider: JHON PRICE DNP Psych Common Visit Codes: CONSULT ONLY JHON PRICE DNP May 19, 2025 12:32
--- NOTE | 2025-05-19 18:13 | PROGRESS NOTE ---
Daily Progress Note Providers to CC ~ Antibiotic Timeout Antibiotic Ordered?: No Subjective Patient was seen in presence of sitter looks comfortable denied any concerns. He was evaluated by psychiatric team by Maribell today " recommended that we should haloperidol 5 mg po prn Q2 hours as needed for psychotic symptoms or agitation. Would not recommend use of benzodiazepines as this class of medications could worsen delirium agitation" Objective Vital Signs Date Time Temp Pulse Resp B/P (MAP) Pulse Ox O2 Delivery O2 Flow Rate FiO2 05/19/25 10:00 98.2 100 16 148/86 (106) 99 Room Air 05/19/25 08:00 0.0 21 Result Diagram: 05/19/25 0643 05/19/25 1404 General-patient not in any acute distress, alert awake , age-appropriate, looks comfortable HEENT-atraumatic normocephalic, neck supple without elevated JVD, No lymphadenopathy bilaterally. Eyes-no icterus or pallor seen in eyes Chest-clear to auscultation bilaterally, breathing nonlabored no tachypnea, no wheezing, no crepitation, no crackles. Heart-S1-S2 normal, regular heart rate no murmur Abdomen bowel sounds positive on auscultation, soft nondistended nontender no guarding, no rigidity Skin no active skin rash Neurology-grossly intact, nonfocal alert awake cooperated during physical examination Extremity- no pedal edema able to move all 4 extremities Coagulation Studies Laboratory Tests Test 05/18/25 07:17 Prothrombin Time 10.3 SECONDS (9.0-12.0) INR International Normalized Ratio 1.0 INR Coagulation Comments Problem\\Assessment\\Plan 34-year-old male who is not a very good historian presented to the ED for chief complaints of hallucinations, both auditory and visual. He states that these hallucinations has been going on for a week. Severe electrolyte abnormalities, under evaluation Hyponatremia, hypokalemia, hypocalcemia Possible drug-induced SIADH (secondary to NSAIDs, NyQuil) vs adrenal insufficiency Prolonged QTC, Visual and auditory hallucinations EKG: Normal sinus rhythm heart rate 97. QTC 554. Electrolyte replacement and continuous telemetry monitoring Continue with NS at 100 mL/hour will follow BMP, normal sodium and potassium currently Urine drug screen negative Metabolic alkalosis Metabolic alkalosis could be secondary to contraction alkalosis from the above will Follow up with ABG AMARILIS likely secondary to renal tubular stasis BUN 43, creatinine 1.92 Acute kidney injury could be from prerenal AMARILIS treated with IV fluid resuscitation Urine spot studies consistent with prerenal AMARILIS Abdominal ultrasound unremarkable COPD, not in exacerbation Active smoker WBC back to normal will Follow up with sputum cultures and blood cultures on IV ceftriaxone 1 g daily Breathing treatments p.r.n. Alcohol use disorder Hepatic dysfunction - Elevated LFTs Elevated bilirubin 1.5, AST ALT 86, 79 States he quit drinking 11 months ago, U tox ethyl alcohol less than 10 Substance use and social work msw consulted. He was evaluated by psychiatric team by Maribell awad for hallucination" recommended that we should haloperidol 5 mg po prn Q2 hours as needed for psychotic symptoms or agitation. Would not recommend use of benzodiazepines as this class of medications could worsen delirium agitation" PATIENT IS MEDICALLY CLEAR FOR PSYCHIATRIC TEAM EVALUATION FROM [facility]. Date of Service: May 19, 2025 Billing Provider: SERGIO QUINTERO MD Common Visit Codes: [id number] INP/OBS CARE(HIGH) SERGIO QUINTERO MD May 19, 2025 18:13
[2025-05-20 06:00] VITALS: BP 140/88; PULSE 85; RESP 14; TEMP 97.3; O2SAT 97
[2025-05-20 06:27] LABS: MEAN PLATELET VOLUME 8.2 FL (7.4-10.4); RED CELL DISTRIBUTION WIDTH 14.3 % (11.5-14.5)
[2025-05-20 06:49] LABS: CREATININE 1.01 MG/DL (0.60-1.10); PHOSPHORUS 2.5 MG/DL (2.3-4.5); TOTAL CARBON DIOXIDE 29.0 MMOL/L (24-32); eCRCL 96 ML/MIN; eGFR 85 ML/MIN
[2025-05-20 08:00] VITALS: RESP 14; O2SAT 97
[2025-05-20 10:00] VITALS: BP 147/84; PULSE 83; RESP 16; TEMP 98.1; O2SAT 97
[2025-05-20 11:24] VITALS: PULSE 80; RESP 18; O2SAT 98
[2025-05-20] MEDS ORDERED: NICO-631 TD (15:59)
--- NOTE | 2025-05-20 17:21 | DISCHARGE SUMMARY ---
Discharge Summary Providers to CC ~ Discharge Summary Admission Diagnosis: ELECTROLYTE ABNORMALITIES, AMARILIS Hospital Course DATE OF ADMISSION: 05/17/25 DATE OF DISCHARGE:05/20/25 CBC testing done on May 20, 2025 showed WBC 10.7 hemoglobin 14.5 hematocrit 42.5 platelet count 253. Serum chemistry done on May 20, 2025 sodium 137 potassium 4.1 creatinine 1.01 GFR 85. Hemoglobin A1c 5.3. Normal liver enzymes, CK 1089 on May 18, 2025, procalcitonin 0.17. Blood culture showed no growth after two days. Echocardiogram.Conclusion Normal LV size and wall thickness. Overall systolic function is normal. LVEF is 60-65%. RV is normal size and function. The left atrium size is normal. Trileaflet AV with moderate calcification on the right and left commissure Trace insufficiency. Mitral valve leaflets are mildly thickened with mild annular calcification. Trace regurgitation. The tricuspid valve is normal in structure with trace regurgitation. The pulmonary valve is normal in structure with physiologic insufficiency. Normal pericardium. No effusion. ULTRASOUND OF ABDOMENIMPRESSION: Normal exam of the abdomen. CT HEADIMPRESSION: 1. No evidence of acute intracranial hemorrhage, mass effect or hydrocephalus. CHEST,SINGLE VIEWIMPRESSION: Mild pulmonary vascular congestion. Discharge Diagnosis\\Comment: Severe electrolyte abnormalities, under evaluation Hyponatremia, hypokalemia, hypocalcemia Possible drug-induced SIADH (secondary to NSAIDs, NyQuil) Metabolic alkalosis AMARILIS likely secondary to renal tubular stasis COPD, not in exacerbation Active smoker h/o Alcohol use disorder Hepatic dysfunction - Elevated LFTs-resolved Mild rhabdomyolysis Operations\\Procedures: none Consultants: none Complications: none Condition on DC: Stable New Medications: Nicotine 14 MG Patch* (Habitrol 14 MG Patch*) 1 Each Patch.td24 1 PATCH TD DAILY for 30 Days, #30 PATCH Continued Medications: Thiamine Hcl (Vitamine B-1) 100 Mg Tablet 1 TAB PO DAILY Discontinued Medications: Chlordiazepoxide Hcl (Librium) 25 Mg Capsule 1 CAP PO BID PRN for alcohol w/d symptoms for 3 Days, #6 CAP 0 Refills Clonidine HCl (Clonidine HCl) 0.1 Mg Tablet 1 TAB PO TID PRN for anxiety attack Hydroxyzine Hcl* (Atarax*) 25 Mg Tablet 1 TAB PO Q6H PRN for anxiety Discharge Summary: 34-year-old male who is not a very good historian presented to the ED for chief complaints of hallucinations, both auditory and visual. He states that these hallucinations has been going on for a week. Severe electrolyte abnormalities, under evaluation Hyponatremia, hypokalemia, hypocalcemia Possible drug-induced SIADH (secondary to NSAIDs, NyQuil) vs adrenal insufficiency Prolonged QTC, Visual and auditory hallucinations EKG: Normal sinus rhythm heart rate 97. QTC 554. Electrolyte replacement and continuous telemetry monitoring Continue with NS at 100 mL/hour will follow BMP, normal sodium and potassium currently Urine drug screen negative Metabolic alkalosis Metabolic alkalosis could be secondary to contraction alkalosis from the above will Follow up with ABG AMARILIS likely secondary to renal tubular stasis BUN 43, creatinine 1.92 Acute kidney injury could be from prerenal AMARILIS treated with IV fluid resuscitation Urine spot studies consistent with prerenal AMARILIS Abdominal ultrasound unremarkable COPD, not in exacerbation Active smoker WBC back to normal will Follow up with sputum cultures and blood cultures on IV ceftriaxone 1 g daily Breathing treatments p.r.n. Alcohol use disorder Hepatic dysfunction - Elevated LFTs Elevated bilirubin 1.5, AST ALT 86, 79 States he quit drinking 11 months ago, U tox ethyl alcohol less than 10 Substance use and adoption social worker consulted. He was evaluated by psychiatric team by Maribell today for hallucination" recommended that we should haloperidol 5 mg po prn Q2 hours as needed for psychotic symptoms or agitation. Would not recommend use of benzodiazepines as this class of medications could worsen delirium agitation" PATIENT IS MEDICALLY CLEARED FOR PSYCHIATRIC TEAM EVALUATION FROM [facility]. Patient was evaluated by [facility] and they did not put the patient on 5150 hold. Patient was feeling better and getting discharged today. Patient is feeling better he has been afebrile and ambulating well , getting discharged home in stable condition. Patient is seen and examined on the day of discharge. All labs, diagnostic workup and discharge plan discussed with patient before his discharge. All questions and queries answered to the best of my professional medical knowledge. I heard patient's concerns and address appropriately. Patient was cleared by Physical therapy team for home discharge concert manager involved in patient's discharge plan. Discharge instructions prov ided to the patient. FOLLOW-UP WITH PRIMARY CARE PHYSICIAN IN 1-2 WEEKS. IF ANY FURTHER PSYCHIATRIC ISSUES PLEASE CONTACT PCP TO GET THE REFERRAL FOR PSYCHIATRY SPECIALIST General-patient not in any acute distress, alert awake , age-appropriate, looks comfortable HEENT-atraumatic normocephalic, neck supple without elevated JVD, No lymphadenopathy bilaterally. Eyes-no icterus or pallor seen in eyes Chest-clear to auscultation bilaterally, breathing nonlabored no tachypnea, no wheezing, no crepitation, no crackles. Heart-S1-S2 normal, regular heart rate no murmur Abdomen bowel sounds positive on auscultation, soft nondistended nontender no guarding, no rigidity Skin no active skin rash Neurology-grossly intact, nonfocal alert awake cooperated during physical examination Extremity- no pedal edema able to move all 4 extremities *Problems/Diagnosis: (1) Hypokalemia Status: Acute Total Time Spent on D/C: > 30 Minutes Date of Service: May 20, 2025 Billing Provider: SERGIO QUINTERO MD Common Visit Codes: 77166-MEL/OBS DISCH DAY >30min SERGIO QUINTERO MD May 20, 2025 17:17
== END 2025-05-20 16:15 | disposition home or self-care (01) | DRG 643 ==
LOC: ER 13:40 → ED HOLD 19:41 → ORTHO 4S 23:00
PROVIDERS: ADMIT Internal Medicine; ATTEND Internal Medicine
DX: E22.2 Syndrome of inappropriate secretion of antidiuretic hormone (principal); N17.0 Acute kidney failure with tubular necrosis; M62.82 Rhabdomyolysis; E87.3 Alkalosis; K76.89 Other specified diseases of liver; F10.129 Alcohol abuse with intoxication, unspecified; J44.9 Chronic obstructive pulmonary disease, unspecified; E78.5 Hyperlipidemia, unspecified; E83.51 Hypocalcemia; E87.6 Hypokalemia; F17.210 Nicotine dependence, cigarettes, uncomplicated; R41.0 Disorientation, unspecified; T39.395A Adverse effect of other nonsteroidal anti-inflammatory drugs [NSAID], initial encounter; T50.995A Adverse effect of other drugs, medicaments and biological substances, initial encounter; T44.3X5A Adverse effect of other parasympatholytics [anticholinergics and antimuscarinics] and spasmolytics, initial encounter; Y92.89 Other specified places as the place of occurrence of the external cause
CPT/HCPCS: 36415; 70450; 71045; 76700; 80048; 80053; 80061; 80305; 80320; 80329; 81001; 82024; 82150; 82248; 82550; 82570; 82607; 82800; 83036; 83605; 83690; 83735; 83930; 83935; 84100; 84132; 84133; 84145; 84295; 84300; 84439; 84443; 84540; 85025; 85610; 87040; 87081; 93005; 93306; 94640; 94760; 99291; A6258; G0378; J0612; J0696; J1630; J1644; J3360; J3480; J7030